=== PATIENT | female | born 1990 | race Two or more races ===

== ENCOUNTER 2018-09-30 23:15 | Emergency (ER) | payer OTHER ==
[~2018-09-30] VITALS: Ht 165.1 cm; Wt 92.4 kg
[2018-09-30] MEDS ORDERED: AMOXICILLIN/CLAV 875-125MG TABLET PO STA (23:44)
[2018-09-30] MEDS ORDERED: AMOXICILLIN/CLAV 875-125MG TABLET ONE (23:46)
[2018-09-30 23:58] VITALS: BP 133/81
== END 2018-10-01 | disposition home or self-care (01) ==
LOC: ED 23:29
DX: A38.9 Scarlet fever, uncomplicated (principal); J02.0 Streptococcal pharyngitis
CPT/HCPCS: 99283

== ENCOUNTER → 2020-05-23 | Outpatient (CLI) | payer OTHER | END | disposition home or self-care (01) | LOC: LAB 07:41 | PROVIDERS: ATTEND Nurse Practitioner | DX: Z34.01 Encounter for supervision of normal first pregnancy, first trimester (principal); Z3A.00 Weeks of gestation of pregnancy not specified | CPT/HCPCS: 36415; 84702 ==

== ENCOUNTER → 2020-05-30 | Outpatient (CLI) | payer OTHER | END | disposition home or self-care (01) | LOC: LAB 13:22 | PROVIDERS: ATTEND Nurse Practitioner | DX: Z34.01 Encounter for supervision of normal first pregnancy, first trimester (principal); Z3A.00 Weeks of gestation of pregnancy not specified | CPT/HCPCS: 36415; 84702 ==